=== PATIENT | female | born 1940 | race Caucasian/White ===

== ENCOUNTER → 2019-08-29 | Outpatient (CLI) | payer MEDICARE ==
[2019-08-29 17:58] LABS: URINE COLOR YELLOW
[2019-08-29 17:59] LABS: PH-URINE 7.5 (5.0 - 8.0); URINE APPEARANCE CLOUDY; URINE BILIRUBIN NEGATIVE (NEGATIVE); URINE BLOOD TRACE (NEGATIVE); URINE GLUCOSE NEGATIVE (NEGATIVE); URINE KETONE NEGATIVE (NEGATIVE); URINE LEUKOCYTE ESTERASE TRACE (NEGATIVE); URINE MUCUS PRESENT (NOT PRESENT); URINE NITRATE NEGATIVE (NEGATIVE); URINE PROTEIN(semi-quant) TRACE mg/dL (NEGATIVE); URINE UROBILINOGEN NORMAL (NORMAL)
== END ==
LOC: LAB 15:26
PROVIDERS: Family Medicine
DX: R30.0 Dysuria (principal); R61 Generalized hyperhidrosis

== ENCOUNTER → 2019-09-14 | Outpatient (CLI) | payer MEDICARE, OTHER | LOC: RAD 09:22 | DX: M20.12 Hallux valgus (acquired), left foot (principal); F03.90 Unspecified dementia, unspecified severity, without behavioral disturbance, psychotic disturbance, mood disturbance, and anxiety ==

== ENCOUNTER → 2019-09-20 | Outpatient (CLI) | payer MEDICARE, OTHER | LOC: RAD 09:54 | DX: R60.9 Edema, unspecified (principal) ==

== ENCOUNTER → 2020-07-05 | Outpatient (CLI) | payer MEDICARE, OTHER ==
[2020-07-05 01:49] LABS: URINE APPEARANCE CLOUDY; URINE BILIRUBIN NEGATIVE (NEGATIVE); URINE BLOOD TRACE (NEGATIVE); URINE COLOR YELLOW; URINE GLUCOSE NEGATIVE (NEGATIVE); URINE KETONE NEGATIVE (NEGATIVE); URINE LEUKOCYTE ESTERASE 2+ (NEGATIVE); URINE NITRATE POSITIVE (NEGATIVE); URINE PROTEIN(semi-quant) 1+ mg/dL (NEGATIVE); URINE UROBILINOGEN NORMAL (NORMAL); URINE WBC >50 /hpf (0-3)
== END ==
LOC: LAB 00:40
PROVIDERS: Family Medicine
DX: R30.0 Dysuria (principal)

== ENCOUNTER → 2020-08-15 | Outpatient (CLI) | payer MEDICARE, OTHER ==
[2020-08-15 04:31] LABS: URINE APPEARANCE HAZY; URINE BILIRUBIN NEGATIVE (NEGATIVE); URINE COLOR YELLOW; URINE GLUCOSE NEGATIVE (NEGATIVE); URINE KETONE NEGATIVE (NEGATIVE); URINE NITRATE NEGATIVE (NEGATIVE); URINE PROTEIN(semi-quant) TRACE mg/dL (NEGATIVE); URINE UROBILINOGEN NORMAL (NORMAL)
[2020-08-15 04:32] LABS: URINE BLOOD NEGATIVE (NEGATIVE); URINE LEUKOCYTE ESTERASE TRACE (NEGATIVE)
== END ==
LOC: LAB 03:32
PROVIDERS: Family Medicine
DX: R53.83 Other fatigue (principal); R30.9 Painful micturition, unspecified

== ENCOUNTER → 2020-09-18 | Outpatient (CLI) | payer MEDICARE, OTHER, MEDICAID | LOC: LAB 23:33 | DX: R32 Unspecified urinary incontinence (principal); R30.0 Dysuria; R39.15 Urgency of urination ==

== ENCOUNTER → 2020-11-22 | Outpatient (CLI) | payer MEDICARE, OTHER, MEDICAID ==
[2020-11-22 09:56] LABS: URINE APPEARANCE CLOUDY; URINE BILIRUBIN NEGATIVE (NEGATIVE); URINE BLOOD NEGATIVE (NEGATIVE); URINE COLOR YELLOW; URINE GLUCOSE NEGATIVE (NEGATIVE); URINE KETONE NEGATIVE (NEGATIVE); URINE LEUKOCYTE ESTERASE NEGATIVE (NEGATIVE); URINE NITRATE NEGATIVE (NEGATIVE); URINE PROTEIN(semi-quant) NEGATIVE (NEGATIVE); URINE UROBILINOGEN NORMAL (NORMAL)
== END ==
LOC: LAB 09:32
PROVIDERS: Family Medicine
DX: N39.0 Urinary tract infection, site not specified (principal)

== ENCOUNTER → 2020-12-12 | Outpatient (CLI) | payer MEDICARE, OTHER, MEDICAID ==
[2020-12-12 16:07] LABS: URINE APPEARANCE HAZY; URINE BILIRUBIN NEGATIVE (NEGATIVE); URINE BLOOD NEGATIVE (NEGATIVE); URINE COLOR YELLOW; URINE GLUCOSE NEGATIVE (NEGATIVE); URINE KETONE NEGATIVE (NEGATIVE); URINE LEUKOCYTE ESTERASE 1+ (NEGATIVE); URINE MUCUS PRESENT (NOT PRESENT); URINE NITRATE NEGATIVE (NEGATIVE); URINE PROTEIN(semi-quant) NEGATIVE (NEGATIVE); URINE UROBILINOGEN NORMAL (NORMAL)
== END ==
LOC: LAB 15:45
PROVIDERS: Family Medicine
DX: R41.82 Altered mental status, unspecified (principal)

== ENCOUNTER → 2020-12-14 | Outpatient (CLI) | payer MEDICARE, OTHER, MEDICAID ==
[2020-12-14 16:03] LABS: HEMATOCRIT 37.5 % (37.0-47.0); MEAN PLATELET VOLUME 11.1 fl (7.4-10.4); RED BLOOD COUNT 4.14 M/mm3 (4.10-5.30); RED CELL DISTRIBUTION WIDTH 14.5 % (11.5-14.5); WHITE BLOOD COUNT 4.8 K/mm3 (4.8-10.8)
[2020-12-14 16:10] LABS: ALBUMIN 3.5 g/dL (3.4-4.8); POTASSIUM 4.3 mmol/L (3.5-5.1)
[2020-12-14 16:11] LABS: CALCIUM 8.6 mg/dL (8.3-10.5)
[2020-12-14 16:13] LABS: TOTAL PROTEIN 6.3 g/dL (6.2-8.1)
[2020-12-14 16:14] LABS: TOTAL BILIRUBIN 0.3 mg/dL (0.2-1.2)
== END ==
LOC: LAB 15:32
PROVIDERS: Family Medicine
DX: Z00.00 Encounter for general adult medical examination without abnormal findings (principal)

== ENCOUNTER → 2021-02-26 | Outpatient (CLI) | payer MEDICARE, OTHER, MEDICAID ==
[2021-02-26 17:57] LABS: URINE APPEARANCE CLOUDY; URINE BILIRUBIN NEGATIVE (NEGATIVE); URINE BLOOD 50 ery/uL (NEGATIVE); URINE COLOR YELLOW; URINE GLUCOSE NEGATIVE (NEGATIVE); URINE KETONE NEGATIVE (NEGATIVE); URINE LEUKOCYTE ESTERASE TRACE (NEGATIVE); URINE MUCUS PRESENT (NOT PRESENT); URINE NITRATE NEGATIVE (NEGATIVE); URINE PROTEIN(semi-quant) TRACE mg/dL (NEGATIVE); URINE UROBILINOGEN NORMAL (NORMAL)
== END ==
LOC: LAB 11:45
PROVIDERS: Family Medicine
DX: N39.0 Urinary tract infection, site not specified (principal); F02.80 Dementia in other diseases classified elsewhere, unspecified severity, without behavioral disturbance, psychotic disturbance, mood disturbance, and anxiety

== ENCOUNTER → 2021-02-28 | Outpatient (CLI) | payer MEDICARE, OTHER, MEDICAID ==
[2021-02-28 13:38] LABS: URINE APPEARANCE CLEAR; URINE BILIRUBIN NEGATIVE (NEGATIVE); URINE BLOOD TRACE (NEGATIVE); URINE COLOR YELLOW; URINE GLUCOSE NEGATIVE (NEGATIVE); URINE KETONE NEGATIVE (NEGATIVE); URINE LEUKOCYTE ESTERASE NEGATIVE (NEGATIVE); URINE MUCUS PRESENT (NOT PRESENT); URINE NITRATE NEGATIVE (NEGATIVE); URINE PROTEIN(semi-quant) NEGATIVE (NEGATIVE); URINE UROBILINOGEN NORMAL (NORMAL); URINE WBC 0-1 /hpf (0-3)
== END ==
LOC: RAD 09:01 → LAB 09:01
PROVIDERS: Psychiatry & Neurology Neurology
DX: R31.9 Hematuria, unspecified (principal); R26.2 Difficulty in walking, not elsewhere classified

== ENCOUNTER → 2021-03-04 | Outpatient (CLI) | payer MEDICARE, OTHER, MEDICAID ==
[2021-03-04 15:33] LABS: BASO # 0.03 (0.02-0.10); EOS # 0.04 (0.04-0.40); EOS % 0.4 % (1.0-5.0); HEMATOCRIT 41.2 % (37.0-47.0); LYMPH# 0.85 (1.50-4.00); MEAN CELL VOLUME 93 fl (78-100); MEAN CORPUSCULAR HEMOGLOBIN 29 pg (27-31); MEAN CORPUSCULAR HGB CONC 32 g/dL (33-37); MEAN PLATELET VOLUME 10.1 fl (7.4-10.4); MONO # 0.65 (0.20-0.80); NEU # 8.09 (1.40-6.50); PLATELET COUNT 276 K/mm3 (130-400); RED BLOOD COUNT 4.42 M/mm3 (4.10-5.30); RED CELL DISTRIBUTION WIDTH 13.9 % (11.5-14.5); WHITE BLOOD COUNT 9.7 K/mm3 (4.8-10.8)
[2021-03-04 15:36] LABS: POTASSIUM 4.2 mmol/L (3.5-5.1)
[2021-03-04 15:37] LABS: CALCIUM 9.4 mg/dL (8.3-10.5)
[2021-03-04 15:39] LABS: TOTAL PROTEIN 7.2 g/dL (6.2-8.1)
[2021-03-04 15:40] LABS: TOTAL BILIRUBIN 0.5 mg/dL (0.2-1.2)
[2021-03-04 15:45] LABS: MAGNESIUM 2.37 mg/dL (1.60-2.60)
== END ==
LOC: LAB 14:38
PROVIDERS: Family Medicine
DX: D64.9 Anemia, unspecified (principal)

== ENCOUNTER → 2021-06-18 | Outpatient (CLI) | payer MEDICARE, OTHER, MEDICAID ==
[2021-06-18 14:49] LABS: URINE APPEARANCE CLOUDY; URINE BILIRUBIN NEGATIVE (NEGATIVE); URINE COLOR YELLOW; URINE GLUCOSE NEGATIVE (NEGATIVE); URINE KETONE NEGATIVE (NEGATIVE); URINE NITRATE POSITIVE (NEGATIVE); URINE PROTEIN(semi-quant) TRACE mg/dL (NEGATIVE); URINE UROBILINOGEN NORMAL (NORMAL)
[2021-06-18 14:50] LABS: URINE BLOOD TRACE (NEGATIVE); URINE LEUKOCYTE ESTERASE 1+ (NEGATIVE); URINE MUCUS PRESENT (NOT PRESENT); URINE WBC 16-30 /hpf (0-3)
== END ==
LOC: LAB 12:21
PROVIDERS: Family Medicine
DX: R30.0 Dysuria (principal)

== ENCOUNTER → 2021-07-13 | Outpatient (CLI) | payer MEDICARE, OTHER, MEDICAID ==
[2021-07-13 11:36] LABS: PH-URINE 6.5 (5.0 - 8.0); URINE APPEARANCE CLOUDY; URINE COLOR YELLOW
[2021-07-13 11:37] LABS: URINE BILIRUBIN NEGATIVE (NEGATIVE); URINE BLOOD TRACE (NEGATIVE); URINE GLUCOSE NEGATIVE (NEGATIVE); URINE KETONE NEGATIVE (NEGATIVE); URINE LEUKOCYTE ESTERASE TRACE (NEGATIVE); URINE MUCUS PRESENT (NOT PRESENT); URINE NITRATE NEGATIVE (NEGATIVE); URINE PROTEIN(semi-quant) TRACE mg/dL (NEGATIVE); URINE UROBILINOGEN NORMAL (NORMAL)
== END ==
LOC: LAB 10:35
PROVIDERS: Family Medicine
DX: N39.0 Urinary tract infection, site not specified (principal)

== ENCOUNTER → 2021-07-24 | Outpatient (CLI) | payer MEDICARE, OTHER, MEDICAID ==
[2021-07-24 13:01] LABS: URINE APPEARANCE CLEAR; URINE COLOR YELLOW; URINE PROTEIN(semi-quant) 1+ mg/dL (NEGATIVE)
[2021-07-24 13:02] LABS: URINE BILIRUBIN NEGATIVE (NEGATIVE); URINE BLOOD TRACE (NEGATIVE); URINE GLUCOSE NEGATIVE (NEGATIVE); URINE KETONE NEGATIVE (NEGATIVE); URINE LEUKOCYTE ESTERASE NEGATIVE (NEGATIVE); URINE NITRATE NEGATIVE (NEGATIVE); URINE UROBILINOGEN NORMAL (NORMAL)
== END ==
LOC: LAB 12:09
PROVIDERS: Family Medicine
DX: N39.0 Urinary tract infection, site not specified (principal)

== ENCOUNTER 2021-09-16 17:33 | Emergency (ER) | payer MEDICARE, OTHER, MEDICAID ==
[~2021-09-16] VITALS: Wt 61.4 kg
[2021-09-16] MEDS ORDERED: CARBIDOPA/LEVODOPA PO (18:24)
[2021-09-16] MEDS ORDERED: ASPERCREME 1035.4 GM TP (18:25)
[2021-09-16] MEDS ORDERED: DULCOLAX S10 MG/SUPP RC (18:26)
[2021-09-16] MEDS ORDERED: FLEET ENEM1 BOT/133 RC (18:27)
[2021-09-16] MEDS ORDERED: GOOD NEIGH1200 MG/15 PO (18:27)
[2021-09-16] MEDS ORDERED: MIRALAX17 GM PO (18:28)
[2021-09-16] MEDS ORDERED: TYLENOL325 M1 PO (18:29)
[2021-09-16 18:30] LABS: HEMATOCRIT 40.2 % (37.0-47.0); HEMOGLOBIN 13.3 g/dL (12.5-16.0); MEAN CELL VOLUME 90 fl (78-100); MEAN CORPUSCULAR HEMOGLOBIN 30 pg (27-31); MEAN CORPUSCULAR HGB CONC 33 g/dL (33-37); MEAN PLATELET VOLUME 9.3 fl (7.4-10.4); PLATELET COUNT 232 K/mm3 (130-400); RED BLOOD COUNT 4.46 M/mm3 (4.10-5.30); RED CELL DISTRIBUTION WIDTH 13.7 % (11.5-14.5); WHITE BLOOD COUNT 14.2 K/mm3 (4.8-10.8)
[2021-09-16 18:45] LABS: ALBUMIN 3.9 g/dL (3.4-4.8); POTASSIUM 3.9 mmol/L (3.5-5.1); SODIUM 139 mmol/L (136-145)
[2021-09-16 18:46] LABS: CALCIUM 9.5 mg/dL (8.3-10.5)
[2021-09-16 18:48] LABS: GLUCOSE 144 mg/dL (65-105); TOTAL PROTEIN 7.3 g/dL (6.2-8.1)
[2021-09-16 18:49] LABS: CARBON DIOXIDE 23 mmol/L (23-31); TOTAL BILIRUBIN 0.8 mg/dL (0.2-1.2)
[2021-09-16 18:53] LABS: AST-SGOT 14 U/L (5-34)
[2021-09-16 18:58] LABS: ALT/SGPT < 6 U/L (0-55)
[2021-09-16 19:13] LABS: LYMPHOCYTE 1 % (20-51); MONOCYTE 7 % (3-10); NEUTROPHILS 92 % (42-75)
[2021-09-16 19:38] LABS: URINE APPEARANCE HAZY; URINE BILIRUBIN NEGATIVE (NEGATIVE); URINE BLOOD 250 ery/uL (NEGATIVE); URINE COLOR YELLOW; URINE GLUCOSE NEGATIVE (NEGATIVE); URINE KETONE 1+ (NEGATIVE); URINE LEUKOCYTE ESTERASE 2+ (NEGATIVE); URINE NITRATE POSITIVE (NEGATIVE); URINE PROTEIN(semi-quant) 2+ (NEGATIVE); URINE UROBILINOGEN NORMAL (NORMAL)
[2021-09-16 19:39] LABS: URINE MUCUS PRESENT (NOT PRESENT); URINE WBC >50 /hpf (0-3)
[2021-09-16] MEDS ORDERED: CEPHALEXIN500 M2 PO (19:47)
[2021-09-16 22:17] VITALS: BP 102/70
== END 2021-09-16 22:17 | disposition home or self-care (01) ==
LOC: ED 17:33
PROVIDERS: Nurse Practitioner
DX: N39.0 Urinary tract infection, site not specified (principal); R44.1 Visual hallucinations; I10 Essential (primary) hypertension; G20 Parkinson's disease; F03.90 Unspecified dementia, unspecified severity, without behavioral disturbance, psychotic disturbance, mood disturbance, and anxiety; Z79.899 Other long term (current) drug therapy
CPT/HCPCS: J0696; J7040

== ENCOUNTER → 2021-11-02 | Outpatient (CLI) | payer MEDICARE, OTHER, MEDICAID ==
[~2021-11-02] MED LIST: ASPERCREME 1035.4 GM TP; CARBIDOPA/LEVODOPA PO; CEPHALEXIN500 M2 PO; DULCOLAX S10 MG/SUPP RC; FLEET ENEM1 BOT/133 RC; GOOD NEIGH1200 MG/15 PO; MIRALAX17 GM PO; TYLENOL325 M1 PO
[2021-11-02 17:15] LABS: URINE APPEARANCE CLOUDY; URINE COLOR YELLOW
[2021-11-02 17:16] LABS: URINE BILIRUBIN NEGATIVE (NEGATIVE); URINE BLOOD TRACE (NEGATIVE); URINE GLUCOSE NEGATIVE (NEGATIVE); URINE KETONE NEGATIVE (NEGATIVE); URINE LEUKOCYTE ESTERASE 2+ (NEGATIVE); URINE NITRATE POSITIVE (NEGATIVE); URINE PROTEIN(semi-quant) TRACE (NEGATIVE); URINE UROBILINOGEN NORMAL (NORMAL); URINE WBC >50 /hpf (0-3)
== END ==
LOC: LAB 15:22
PROVIDERS: Family Medicine
DX: N39.0 Urinary tract infection, site not specified (principal)

== ENCOUNTER → 2021-11-21 | Outpatient (CLI) | payer OTHER ==
[~2021-11-21] MED LIST changes: +COMTAN 200MG T200 MG PO; +WELLBUTRIN XL150 M2 PO
[2021-11-21 14:54] LABS: URINE APPEARANCE HAZY; URINE BILIRUBIN NEGATIVE (NEGATIVE); URINE BLOOD 50 ery/uL (NEGATIVE); URINE COLOR ORANGE; URINE GLUCOSE NEGATIVE (NEGATIVE); URINE KETONE NEGATIVE (NEGATIVE); URINE LEUKOCYTE ESTERASE NEGATIVE (NEGATIVE); URINE NITRATE NEGATIVE (NEGATIVE); URINE PROTEIN(semi-quant) TRACE (NEGATIVE); URINE UROBILINOGEN NORMAL (NORMAL)
[2021-11-21 14:55] LABS: URINE MUCUS PRESENT (NOT PRESENT)
== END ==
LOC: LAB 12:04
DX: N39.0 Urinary tract infection, site not specified (principal)

== ENCOUNTER 2021-11-22 15:28 | Emergency (ER) | payer OTHER, MEDICAID ==
[~2021-11-22] VITALS: Ht 160 cm; Wt 65.5 kg
[~2021-11-22 15:28] MED LIST changes: -COMTAN 200MG T200 MG PO; -WELLBUTRIN XL150 M2 PO
[2021-11-22 16:20] LABS: BASO # 0.05 K/mm3 (0.02-0.10); EOS # 0.06 K/mm3 (0.04-0.40); EOS % 0.9 % (1.0-5.0); HEMATOCRIT 38.7 % (37.0-47.0); HEMOGLOBIN 12.6 g/dL (12.5-16.0); LYMPH# 1.01 K/mm3 (1.50-4.00); MEAN CELL VOLUME 91 fl (78-100); MEAN CORPUSCULAR HEMOGLOBIN 30 pg (27-31); MEAN CORPUSCULAR HGB CONC 33 g/dL (33-37); MEAN PLATELET VOLUME 11.3 fl (7.4-10.4); MONO # 0.65 K/mm3 (0.20-0.80); NEU # 5.07 K/mm3 (1.40-6.50); PLATELET COUNT 176 K/mm3 (130-400); RED BLOOD COUNT 4.26 M/mm3 (4.10-5.30); RED CELL DISTRIBUTION WIDTH 14.3 % (11.5-14.5); WHITE BLOOD COUNT 6.9 K/mm3 (4.8-10.8)
[2021-11-22] MEDS ORDERED: COMTAN 200MG T200 MG PO (16:26)
[2021-11-22] MEDS ORDERED: WELLBUTRIN XL150 M2 PO (16:27)
[2021-11-22 16:35] LABS: ALBUMIN 4.4 g/dL (3.4-4.8); POTASSIUM 4.5 mmol/L (3.5-5.1)
[2021-11-22 16:37] LABS: URINE COLOR YELLOW
[2021-11-22 16:38] LABS: URINE APPEARANCE CLEAR; URINE BILIRUBIN NEGATIVE (NEGATIVE); URINE BLOOD 50 ery/uL (NEGATIVE); URINE GLUCOSE NEGATIVE (NEGATIVE); URINE KETONE NEGATIVE (NEGATIVE); URINE LEUKOCYTE ESTERASE TRACE (NEGATIVE); URINE NITRATE NEGATIVE (NEGATIVE); URINE PROTEIN(semi-quant) 1+ (NEGATIVE); URINE UROBILINOGEN NORMAL (NORMAL)
[2021-11-22 16:38] LABS: TOTAL PROTEIN 7.7 g/dL (6.2-8.1)
[2021-11-22 16:40] LABS: TOTAL BILIRUBIN 0.5 mg/dL (0.2-1.2)
[2021-11-22] MEDS ORDERED: CEPHALEXIN500 M2 PO (17:02)
[2021-11-22 17:13] VITALS: BP 146/92
== END 2021-11-22 17:20 | disposition home or self-care (01) ==
LOC: ED 15:28
PROVIDERS: Nurse Practitioner
DX: N39.0 Urinary tract infection, site not specified (principal)
CPT/HCPCS: J0696

== ENCOUNTER → 2021-11-26 | Outpatient (CLI) | payer MEDICARE, OTHER, MEDICAID ==
[~2021-11-26] MED LIST changes: +COMTAN 200MG T200 MG PO; +WELLBUTRIN XL150 M2 PO
[2021-11-26 15:34] LABS: BASO # 0.04 K/mm3 (0.02-0.10); EOS # 0.05 K/mm3 (0.04-0.40); EOS % 0.7 % (1.0-5.0); HEMOGLOBIN 12.2 g/dL (12.5-16.0); LYMPH# 0.77 K/mm3 (1.50-4.00); MEAN CELL VOLUME 92 fl (78-100); MEAN CORPUSCULAR HEMOGLOBIN 30 pg (27-31); MEAN CORPUSCULAR HGB CONC 33 g/dL (33-37); MEAN PLATELET VOLUME 10.7 fl (7.4-10.4); MONO # 0.63 K/mm3 (0.20-0.80); NEU # 5.73 K/mm3 (1.40-6.50); PLATELET COUNT 134 K/mm3 (130-400); RED BLOOD COUNT 4.03 M/mm3 (4.10-5.30); RED CELL DISTRIBUTION WIDTH 14.3 % (11.5-14.5); WHITE BLOOD COUNT 7.2 K/mm3 (4.8-10.8)
[2021-11-26 15:39] LABS: ALBUMIN 3.9 g/dL (3.4-4.8)
[2021-11-26 15:40] LABS: POTASSIUM 4.1 mmol/L (3.5-5.1)
[2021-11-26 15:41] LABS: CALCIUM 9.3 mg/dL (8.3-10.5)
[2021-11-26 15:42] LABS: TOTAL PROTEIN 6.8 g/dL (6.2-8.1)
[2021-11-26 15:44] LABS: TOTAL BILIRUBIN 0.4 mg/dL (0.2-1.2)
== END ==
LOC: LAB 15:15
PROVIDERS: Family Medicine
DX: R44.1 Visual hallucinations (principal)

== ENCOUNTER → 2021-12-10 | Outpatient (CLI) | payer MEDICARE, OTHER, MEDICAID | LOC: RAD 09:00 | DX: R90.82 White matter disease, unspecified (principal); R41.82 Altered mental status, unspecified ==

== ENCOUNTER → 2021-12-14 | Outpatient (CLI) | payer MEDICARE, OTHER, MEDICAID ==
[2021-12-14 08:31] LABS: HEMATOCRIT 38.8 % (37.0-47.0); HEMOGLOBIN 12.5 g/dL (12.5-16.0); RED BLOOD COUNT 4.14 M/mm3 (4.10-5.30); RED CELL DISTRIBUTION WIDTH 14.2 % (11.5-14.5); WHITE BLOOD COUNT 5.2 K/mm3 (4.8-10.8)
[2021-12-14 08:35] LABS: ALBUMIN 3.7 g/dL (3.4-4.8); POTASSIUM 3.9 mmol/L (3.5-5.1); SODIUM 143 mmol/L (136-145)
[2021-12-14 08:36] LABS: CALCIUM 9.1 mg/dL (8.3-10.5)
[2021-12-14 08:37] LABS: GLUCOSE 90 mg/dL (65-105); TOTAL PROTEIN 6.5 g/dL (6.2-8.1)
[2021-12-14 08:38] LABS: CARBON DIOXIDE 23 mmol/L (23-31)
[2021-12-14 08:39] LABS: TOTAL BILIRUBIN 0.6 mg/dL (0.2-1.2)
[2021-12-14 08:43] LABS: AST-SGOT 13 U/L (5-34)
[2021-12-14 08:45] LABS: ALT/SGPT < 6 U/L (0-55)
== END ==
LOC: LAB 07:59
PROVIDERS: Family Medicine
DX: R60.1 Generalized edema (principal)

== ENCOUNTER → 2021-12-18 | Outpatient (CLI) | payer MEDICARE, MEDICAID ==
[2021-12-18 09:52] LABS: BASO # 0.04 K/mm3 (0.02-0.10); EOS # 0.02 K/mm3 (0.04-0.40); EOS % 0.3 % (1.0-5.0); HEMOGLOBIN 13.3 g/dL (12.5-16.0); LYMPH# 0.63 K/mm3 (1.50-4.00); MEAN CELL VOLUME 92 fl (78-100); MEAN CORPUSCULAR HEMOGLOBIN 30 pg (27-31); MEAN CORPUSCULAR HGB CONC 32 g/dL (33-37); MONO # 0.35 K/mm3 (0.20-0.80); PLATELET COUNT 129 K/mm3 (130-400); RED BLOOD COUNT 4.44 M/mm3 (4.10-5.30); RED CELL DISTRIBUTION WIDTH 13.8 % (11.5-14.5); WHITE BLOOD COUNT 6.1 K/mm3 (4.8-10.8)
== END ==
LOC: LAB 09:36
PROVIDERS: Family Medicine
DX: F02.80 Dementia in other diseases classified elsewhere, unspecified severity, without behavioral disturbance, psychotic disturbance, mood disturbance, and anxiety (principal)

== ENCOUNTER → 2022-01-22 | Outpatient (CLI) | payer MEDICARE, MEDICAID ==
[2022-01-22 16:54] LABS: URINE APPEARANCE HAZY; URINE BILIRUBIN NEGATIVE (NEGATIVE); URINE BLOOD 50 ery/uL (NEGATIVE); URINE COLOR YELLOW; URINE GLUCOSE NEGATIVE (NEGATIVE); URINE KETONE NEGATIVE (NEGATIVE); URINE LEUKOCYTE ESTERASE 2+ (NEGATIVE); URINE NITRATE POSITIVE (NEGATIVE); URINE PROTEIN(semi-quant) 1+ (NEGATIVE); URINE UROBILINOGEN NORMAL (NORMAL); URINE WBC >50 /hpf (0-3)
== END ==
LOC: LAB 14:57
PROVIDERS: Family Medicine
DX: N39.0 Urinary tract infection, site not specified (principal)

== ENCOUNTER → 2022-03-08 | Outpatient (CLI) | payer MEDICARE, MEDICAID ==
[2022-03-08 07:25] LABS: URINE APPEARANCE HAZY
[2022-03-08 07:26] LABS: URINE BILIRUBIN NEGATIVE (NEGATIVE); URINE BLOOD TRACE (NEGATIVE); URINE COLOR ORANGE; URINE GLUCOSE NEGATIVE (NEGATIVE); URINE KETONE NEGATIVE (NEGATIVE); URINE LEUKOCYTE ESTERASE NEGATIVE (NEGATIVE); URINE NITRATE NEGATIVE (NEGATIVE); URINE PROTEIN(semi-quant) NEGATIVE (NEGATIVE); URINE UROBILINOGEN NORMAL (NORMAL)
== END ==
LOC: LAB 02:13
PROVIDERS: Family Medicine
DX: R30.0 Dysuria (principal)

== ENCOUNTER → 2022-04-10 | Outpatient (CLI) | payer MEDICARE, MEDICAID ==
[2022-04-10 08:15] LABS: URINE APPEARANCE CLEAR; URINE COLOR STRAW
[2022-04-10 08:17] LABS: URINE BILIRUBIN NEGATIVE (NEGATIVE); URINE GLUCOSE NEGATIVE (NEGATIVE); URINE KETONE NEGATIVE (NEGATIVE); URINE PROTEIN(semi-quant) NEGATIVE (NEGATIVE); URINE UROBILINOGEN NORMAL (NORMAL)
[2022-04-10 08:18] LABS: URINE BLOOD TRACE (NEGATIVE); URINE LEUKOCYTE ESTERASE NEGATIVE (NEGATIVE); URINE NITRATE NEGATIVE (NEGATIVE); URINE WBC 0-1 /hpf (0-3)
== END ==
LOC: LAB 07:22
PROVIDERS: Family Medicine
DX: F02.80 Dementia in other diseases classified elsewhere, unspecified severity, without behavioral disturbance, psychotic disturbance, mood disturbance, and anxiety (principal)

== ENCOUNTER → 2022-04-11 | Outpatient (CLI) | payer MEDICARE, MEDICAID ==
[2022-04-11 11:32] LABS: BASO # 0.04 K/mm3 (0.02-0.10); EOS # 0.01 K/mm3 (0.04-0.40); EOS % 0.2 % (1.0-5.0); HEMATOCRIT 40.3 % (37.0-47.0); MEAN CELL VOLUME 95 fl (78-100); MEAN CORPUSCULAR HEMOGLOBIN 31 pg (27-31); MEAN CORPUSCULAR HGB CONC 32 g/dL (33-37); MEAN PLATELET VOLUME 9.5 fl (7.4-10.4); MONO # 0.45 K/mm3 (0.20-0.80); NEU # 5.43 K/mm3 (1.40-6.50); PLATELET COUNT 304 K/mm3 (130-400); RED BLOOD COUNT 4.25 M/mm3 (4.10-5.30); RED CELL DISTRIBUTION WIDTH 14.1 % (11.5-14.5); WHITE BLOOD COUNT 6.6 K/mm3 (4.8-10.8)
[2022-04-11 16:09] LABS: ALBUMIN 4.2 g/dL (3.4-4.8); POTASSIUM 4.1 mmol/L (3.5-5.1)
[2022-04-11 16:10] LABS: CALCIUM 9.6 mg/dL (8.3-10.5)
[2022-04-11 16:11] LABS: TOTAL PROTEIN 7.4 g/dL (6.2-8.1)
[2022-04-11 16:13] LABS: TOTAL BILIRUBIN 0.8 mg/dL (0.2-1.2)
== END ==
LOC: LAB 10:50
PROVIDERS: Family Medicine
DX: I67.82 Cerebral ischemia (principal)

== ENCOUNTER → 2022-07-16 | Outpatient (CLI) | payer MEDICARE, MEDICAID ==
[2022-07-16 11:36] LABS: URINE APPEARANCE CLOUDY; URINE BILIRUBIN NEGATIVE (NEGATIVE); URINE BLOOD TRACE (NEGATIVE); URINE COLOR YELLOW; URINE GLUCOSE NEGATIVE (NEGATIVE); URINE KETONE NEGATIVE (NEGATIVE); URINE LEUKOCYTE ESTERASE 2+ (NEGATIVE); URINE NITRATE POSITIVE (NEGATIVE); URINE PROTEIN(semi-quant) TRACE (NEGATIVE); URINE UROBILINOGEN NORMAL (NORMAL)
[2022-07-16 11:37] LABS: URINE WBC >50 /hpf (0-3)
== END ==
LOC: LAB 09:48
PROVIDERS: Family Medicine
DX: N39.0 Urinary tract infection, site not specified (principal)

== ENCOUNTER → 2022-08-19 | Outpatient (CLI) | payer MEDICARE, MEDICAID | LOC: LAB 16:51 | DX: J10.1 Influenza due to other identified influenza virus with other respiratory manifestations (principal) ==

== ENCOUNTER → 2022-10-15 | Outpatient (CLI) | payer MEDICARE, MEDICAID ==
[2022-10-15 07:06] LABS: PH-URINE 7.5 (5.0 - 8.0); URINE APPEARANCE CLOUDY; URINE BILIRUBIN NEGATIVE (NEGATIVE); URINE BLOOD TRACE (NEGATIVE); URINE COLOR YELLOW; URINE GLUCOSE NEGATIVE (NEGATIVE); URINE KETONE NEGATIVE (NEGATIVE); URINE LEUKOCYTE ESTERASE 2+ (NEGATIVE); URINE NITRATE POSITIVE (NEGATIVE); URINE PROTEIN(semi-quant) TRACE (NEGATIVE); URINE UROBILINOGEN NORMAL (NORMAL); URINE WBC >50 /hpf (0-3)
== END ==
LOC: LAB 06:15
PROVIDERS: Family Medicine
DX: N39.0 Urinary tract infection, site not specified (principal)

== ENCOUNTER → 2023-12-15 | Outpatient (REF) | payer MEDICARE, MEDICAID ==
[2023-12-15 04:15] LABS: ALBUMIN 3.9 g/dL (3.4-4.8)
[2023-12-15 04:16] LABS: SODIUM 143 mmol/L (136-145)
[2023-12-15 04:17] LABS: CALCIUM 9.3 mg/dL (8.3-10.5)
[2023-12-15 04:18] LABS: GLUCOSE 85 mg/dL (65-105); TOTAL PROTEIN 6.7 g/dL (6.2-8.1)
[2023-12-15 04:19] LABS: CARBON DIOXIDE 25 mmol/L (23-31)
[2023-12-15 04:20] LABS: TOTAL BILIRUBIN 0.3 mg/dL (0.2-1.2)
[2023-12-15 04:23] LABS: AST-SGOT 12 U/L (5-34)
[2023-12-15 04:34] LABS: HEMATOCRIT 39.8 % (37.0-47.0); MEAN PLATELET VOLUME 10.8 fl (7.4-10.4); RED BLOOD COUNT 4.27 M/mm3 (4.10-5.30); RED CELL DISTRIBUTION WIDTH 13.6 % (11.5-14.5); WHITE BLOOD COUNT 4.2 K/mm3 (4.8-10.8)
[2023-12-15 05:02] LABS: ALT/SGPT < 6 U/L (0-55)
== END ==
LOC: LAB 03:35
PROVIDERS: Family Medicine
DX: G20.A1 Parkinson's disease without dyskinesia, without mention of fluctuations (principal)

== ENCOUNTER → 2024-07-18 | Outpatient (REF) | payer MEDICARE, MEDICAID ==
[2024-07-18 11:26] LABS: PH-URINE 8.5 (5.0 - 8.0); URINE APPEARANCE CLOUDY (CLEAR); URINE BILIRUBIN NEGATIVE (NEGATIVE); URINE COLOR YELLOW (YELLOW); URINE GLUCOSE NEGATIVE (NEGATIVE); URINE KETONE NEGATIVE (NEGATIVE); URINE NITRATE POSITIVE (NEGATIVE); URINE PROTEIN(semi-quant) 3+ (NEGATIVE)
[2024-07-18 11:27] LABS: URINE BLOOD 1+ (NEGATIVE); URINE LEUKOCYTE ESTERASE 3+ (NEGATIVE); URINE MUCUS PRESENT (NOT PRESENT); URINE WBC >50 /hpf (0-3)
== END ==
LOC: LAB 10:57
PROVIDERS: Family Medicine
DX: N39.0 Urinary tract infection, site not specified (principal)